=== PATIENT | female | born 1935 | race Caucasian/White ===

== ENCOUNTER 2023-04-23 11:47 | Inpatient (IN) | payer MEDICARE, BC ==
[~2023-04-23] VITALS: Ht 152.4 cm; Wt 59.4 kg
[2023-04-23 12:09] LABS: BASOPHILS # (AUTO) 0.1 K/UL (0.0-0.2); BASOPHILS % (AUTO) 0.4 % (0.0-2.0); EOSINOPHILS # (AUTO) 0.1 K/uL (0.0-0.7); EOSINOPHILS % (AUTO) 0.6 % (0.0-7.0); HEMATOCRIT 36.5 % (31.2-41.9); HEMOGLOBIN 12.2 g/dL (10.9-14.3); LYMPHOCYTES # (AUTO) 1.1 K/uL (0.8-4.8); LYMPHOCYTES % (AUTO) 8.4 % (20.5-51.5); MEAN CORPUSCULAR HEMOGLOBIN 31.2 uug (24.7-32.8); MEAN CORPUSCULAR HGB CONC 34 g/dL (32.3-35.6); MEAN CORPUSCULAR VOLUME 93.1 fL (75.5-95.3); MONOCYTES # (AUTO) 0.8 K/uL (0.1-1.30); MONOCYTES % (AUTO) 5.8 % (0.0-11.0); NEUTROPHILS # (AUTO) 11.1 K/uL (1.8-8.9); NEUTROPHILS % (AUTO) 84.8 % (38.5-71.5); PLATELET COUNT (AUTO) 329 K/uL (179-408); RED BLOOD CELL COUNT(AUTO) 3.92 MIL/uL (3.63-4.92); RED CELL DISTRIBUTION WIDTH 13.4 % (12.3-17.7); WHITE BLOOD COUNT (AUTO) 13.1 K/uL (3.8-11.8)
[2023-04-23 12:12] LABS: DIFFERENTIAL COMMENT 1
[2023-04-23 12:29] LABS: POTASSIUM 4.2 mmol/L (3.5-5.1)
[2023-04-23 12:35] LABS: ALBUMIN 2.4 g/dL (3.4-5.0); BILIRUBIN,TOTAL 0.6 mg/dL (0.2-1.0); TOTAL PROTEIN, SERUM 6.5 g/dL (6.4-8.2)
[2023-04-23 12:47] LABS: CALCIUM 8.9 mg/dL (8.5-10.1)
[2023-04-23 13:02] LABS: *CLARITY,URINE TURBID (CLEAR); *COLOR,URINE RED (YELLOW)
[2023-04-23 13:03] LABS: *BILIRUBIN,URIN NEGATIVE (NEGATIVE); *BLOOD, URINE 3+ (NEGATIVE); *KETONES,URINE NEGATIVE (NEGATIVE); *PROTEIN,URINE 3+ (NEGATIVE); PH,URINE 8.5 (5.0-8.0); UGLUCOSE NEGATIVE (NEGATIVE)
[2023-04-23 13:04] LABS: LEUKOCYTE ESTERASE ,URINE 3+ (NEGATIVE); NITRITE, URINE POSITIVE (NEGATIVE)
[2023-04-23] MEDS ORDERED: IV NS 1000 ML 1,000 ML IV ONE (13:30)
[2023-04-23] MEDS ORDERED: levoFLOXacin 500 MG/D5W 100ML PIGGYBACK IV ONE (13:30)
[2023-04-23] MEDS ORDERED: levoFLOXacin 500 MG/D5W 100 ML ONE (13:31)
[2023-04-23 13:42] LABS: BACTERIA,URINE MODERATE /HPF (NONE SEEN); RBC,URINE TNTC /HPF (0-3); WBC,URINE 80-100 /HPF (0-3)
[2023-04-23] MEDS ORDERED: ONDANSETRON 4 MG/2 ML VIAL IV PRN (16:00)
[2023-04-23] MEDS ORDERED: HYDROCODONE/APAP 5-325MG TABLET PO PRN (16:00)
[2023-04-23] MEDS ORDERED: MAGNESIUM HYDROXIDE 30 ML LIQUID UDC PO PRN (16:00)
[2023-04-23 17:00] VITALS: BP 138/56; TEMP 97; O2SAT 98
[2023-04-23] MEDS: CEFEPIME HCL 1 G in IV DEXTROSE 5% 50 ML IV SCH (17:15)
[2023-04-23] MEDS: IV NS 1000 ML 1,000 ML IV PRN (17:15)
[2023-04-23] MEDS: MEGESTROL ACETATE 20 MG TABLET PO SCH (17:29)
[2023-04-23 20:15] VITALS: BP 128/60; TEMP 98; O2SAT 98
[2023-04-23] MEDS ORDERED: CEFEPIME HCL 1 G in IV DEXTROSE 5% 50 ML IV SCH (21:00)
[2023-04-23] MEDS: MIRTAZAPINE 15 MG TABLET PO SCH (21:35)
[2023-04-24] MEDS: REMEDY ESSENTIAL ZINC PASTE 113 GM TP PRN ×2 (00:33→05:40)
[2023-04-24 04:00] VITALS: BP 106/57; TEMP 98.9; O2SAT 99
[2023-04-24] MEDS: IV NS 1000 ML 1,000 ML IV PRN ×2 (05:08→22:58)
[2023-04-24] MEDS: PANTOPRAZOLE SODIUM 40 MG TABLET.DR PO SCH (06:46)
[2023-04-24 07:06] LABS: BASOPHILS % (AUTO) 0.2 % (0.0-2.0); EOSINOPHILS # (AUTO) 0.1 K/uL (0.0-0.7); EOSINOPHILS % (AUTO) 1.4 % (0.0-7.0); HEMATOCRIT 32.4 % (31.2-41.9); HEMOGLOBIN 11.2 g/dL (10.9-14.3); LYMPHOCYTES # (AUTO) 1.1 K/uL (0.8-4.8); LYMPHOCYTES % (AUTO) 11.8 % (20.5-51.5); MEAN CORPUSCULAR HEMOGLOBIN 32.2 uug (24.7-32.8); MEAN CORPUSCULAR HGB CONC 34 g/dL (32.3-35.6); MEAN CORPUSCULAR VOLUME 93.5 fL (75.5-95.3); MONOCYTES # (AUTO) 0.5 K/uL (0.1-1.30); MONOCYTES % (AUTO) 4.8 % (0.0-11.0); NEUTROPHILS # (AUTO) 7.9 K/uL (1.8-8.9); NEUTROPHILS % (AUTO) 81.8 % (38.5-71.5); PLATELET COUNT (AUTO) 276 K/uL (179-408); RED BLOOD CELL COUNT(AUTO) 3.47 MIL/uL (3.63-4.92); RED CELL DISTRIBUTION WIDTH 13.2 % (12.3-17.7); WHITE BLOOD COUNT (AUTO) 9.6 K/uL (3.8-11.8)
[2023-04-24 07:13] LABS: CALCIUM 8.4 mg/dL (8.5-10.1); CARBON DIOXIDE 17 mmol/L (21-32); CHLORIDE 105 mmol/L (98-107); CREATININE 0.8 mg/dL (0.6-1.3); GLUCOSE 92 mg/dL (74-106); MAGNESIUM 1.8 mg/dL (1.8-2.4); PHOSPHOROUS 2.9 mg/dL (2.5-4.9); POTASSIUM 4.2 mmol/L (3.5-5.1); SODIUM SERUM 133 mmol/L (136-145); UREA NITROGEN, BLOOD 24 mg/dL (7-18)
[2023-04-24 07:28] LABS: DIFFERENTIAL COMMENT 1
[2023-04-24 07:29] LABS: THYROID STIMULATING HORMONE 4.448 mIU/mL (0.358-3.740)
[2023-04-24 08:00] VITALS: BP 115/45; TEMP 98.4; O2SAT 99
[2023-04-24] MEDS: ENSURE ENLIVE (VAN) 240 ML LIQUID PO SCH ×2 (08:00→16:54)
[2023-04-24] MEDS ORDERED: AMLO10TA59 PO (09:31)
[2023-04-24] MEDS ORDERED: ASPI-1169 PO (09:32)
[2023-04-24] MEDS ORDERED: ATOR10TA PO (09:32)
[2023-04-24] MEDS ORDERED: IBUP-1490 PO (09:33)
[2023-04-24] MEDS ORDERED: MEGE40TA5 PO (09:35)
[2023-04-24] MEDS ORDERED: METO100T14 PO (09:35)
[2023-04-24] MEDS ORDERED: VALS160T2 PO (09:37)
[2023-04-24] MEDS ORDERED: POVI480S2 TP (09:38)
[2023-04-24] MEDS: MEGESTROL ACETATE 20 MG TABLET PO SCH ×2 (10:00→16:54)
[2023-04-24] MEDS: SHARK LIVER OIL/PETROLAT OINT 60 GM TUBE RC SCH ×2 (10:01→16:55)
[2023-04-24 11:30] VITALS: BP 124/57; TEMP 98.3; O2SAT 99
[2023-04-24 16:30] VITALS: BP 137/65; TEMP 98.1; O2SAT 98
[2023-04-24] MEDS: CEFEPIME HCL 1 G in IV DEXTROSE 5% 50 ML IV SCH (16:54)
[2023-04-24 20:21] VITALS: BP 107/60; TEMP 98.5; O2SAT 97
[2023-04-24] MEDS: MIRTAZAPINE 15 MG TABLET PO SCH (21:13)
[2023-04-25 04:35] VITALS: BP 149/74; TEMP 98.4; O2SAT 99
[2023-04-25] MEDS: PANTOPRAZOLE SODIUM 40 MG TABLET.DR PO SCH (07:08)
[2023-04-25] MEDS: MEGESTROL ACETATE 20 MG TABLET PO SCH ×2 (08:31→17:06)
[2023-04-25] MEDS: SHARK LIVER OIL/PETROLAT OINT 60 GM TUBE RC SCH ×2 (08:32→17:06)
[2023-04-25] MEDS: ENSURE ENLIVE (VAN) 240 ML LIQUID PO SCH ×3 (08:32→17:07)
[2023-04-25 09:38] VITALS: BP 135/65; TEMP 97.8; O2SAT 98
[2023-04-25 11:55] VITALS: BP 142/67; TEMP 97.7; O2SAT 99
[2023-04-25] MEDS: AMLODIPINE 10 MG TABLET PO SCH (12:23)
[2023-04-25] MEDS: IV NS 1000 ML 1,000 ML IV PRN (12:29)
[2023-04-25 16:46] VITALS: BP 104/54; TEMP 98.4; O2SAT 99
[2023-04-25] MEDS: CEFEPIME HCL 1 G in IV DEXTROSE 5% 50 ML IV SCH (17:06)
[2023-04-25 20:26] VITALS: BP 117/59; TEMP 98.4; O2SAT 98
[2023-04-25] MEDS: MIRTAZAPINE 15 MG TABLET PO SCH (21:46)
[2023-04-25] MEDS: METOPROLOL TARTRATE 50 MG TABLET PO SCH (21:46)
[2023-04-25] MEDS: ATORVASTATIN 10 MG TABLET PO SCH (21:46)
[2023-04-26] MEDS: IV NS 1000 ML 1,000 ML IV PRN ×2 (02:40→16:14)
[2023-04-26 04:26] VITALS: BP 143/62; TEMP 98.3; O2SAT 96
[2023-04-26] MEDS: PANTOPRAZOLE SODIUM 40 MG TABLET.DR PO SCH (06:08)
[2023-04-26 08:00] VITALS: BP 135/65; TEMP 98.5; O2SAT 98
[2023-04-26] MEDS: VALSARTAN 160 MG TABLET PO SCH (08:33)
[2023-04-26] MEDS: METOPROLOL TARTRATE 50 MG TABLET PO SCH ×2 (08:34→20:30)
[2023-04-26] MEDS: MEGESTROL ACETATE 20 MG TABLET PO SCH ×2 (08:34→16:08)
[2023-04-26] MEDS: AMLODIPINE 10 MG TABLET PO SCH (08:34)
[2023-04-26] MEDS: SHARK LIVER OIL/PETROLAT OINT 60 GM TUBE RC SCH ×2 (08:34→16:10)
[2023-04-26] MEDS: ENSURE ENLIVE (VAN) 240 ML LIQUID PO SCH ×3 (08:35→16:10)
[2023-04-26 08:36] LABS: BASOPHILS % (AUTO) 0.4 % (0.0-2.0); EOSINOPHILS # (AUTO) 0.1 K/uL (0.0-0.7); HEMATOCRIT 31.6 % (31.2-41.9); LYMPHOCYTES # (AUTO) 0.8 K/uL (0.8-4.8); MEAN CORPUSCULAR HEMOGLOBIN 32.5 uug (24.7-32.8); MEAN CORPUSCULAR HGB CONC 35 g/dL (32.3-35.6); MEAN CORPUSCULAR VOLUME 93.3 fL (75.5-95.3); MONOCYTES # (AUTO) 0.5 K/uL (0.1-1.30); MONOCYTES % (AUTO) 4.6 % (0.0-11.0); NEUTROPHILS # (AUTO) 8.5 K/uL (1.8-8.9); PLATELET COUNT (AUTO) 263 K/uL (179-408); RED BLOOD CELL COUNT(AUTO) 3.38 MIL/uL (3.63-4.92); RED CELL DISTRIBUTION WIDTH 13.3 % (12.3-17.7); WHITE BLOOD COUNT (AUTO) 9.9 K/uL (3.8-11.8)
[2023-04-26 09:00] LABS: CARBON DIOXIDE 18 mmol/L (21-32); CHLORIDE 108 mmol/L (98-107); CREATININE 0.8 mg/dL (0.6-1.3); GLUCOSE 95 mg/dL (74-106); POTASSIUM 4.2 mmol/L (3.5-5.1); SODIUM SERUM 136 mmol/L (136-145); UREA NITROGEN, BLOOD 17 mg/dL (7-18)
[2023-04-26 09:05] LABS: CALCIUM 8.5 mg/dL (8.5-10.1)
[2023-04-26 09:14] LABS: DIFFERENTIAL COMMENT 1
[2023-04-26 09:39] LABS: MAGNESIUM 1.6 mg/dL (1.8-2.4); PHOSPHOROUS 2.7 mg/dL (2.5-4.9); URIC ACID 2.1 mg/dL (2.6-6.0)
[2023-04-26 10:29] LABS: THYROID STIMULATING HORMONE 3.84 mIU/mL (0.358-3.740)
[2023-04-26 11:45] VITALS: BP 114/49; TEMP 97.9; O2SAT 98
[2023-04-26] MEDS: ACETAMINOPHEN 325 MG TABLET PO PRN ×2 (12:46→20:31)
[2023-04-26 15:47] VITALS: BP 123/58; TEMP 97.9; O2SAT 97
[2023-04-26] MEDS: CEFEPIME HCL 1 G in IV DEXTROSE 5% 50 ML IV SCH (16:08)
[2023-04-26] MEDS: ATORVASTATIN 10 MG TABLET PO SCH (20:29)
[2023-04-26] MEDS: MIRTAZAPINE 15 MG TABLET PO SCH (20:30)
[2023-04-26 21:35] VITALS: BP 116/53; TEMP 98.2; O2SAT 97
[2023-04-27 05:41] VITALS: BP 130/61; TEMP 97.4; O2SAT 97
[2023-04-27] MEDS: PANTOPRAZOLE SODIUM 40 MG TABLET.DR PO SCH (06:06)
[2023-04-27] MEDS: IV NS 1000 ML 1,000 ML IV PRN ×2 (06:21→21:55)
[2023-04-27 07:18] LABS: BASOPHILS % (AUTO) 0.2 % (0.0-2.0); EOSINOPHILS # (AUTO) 0.1 K/uL (0.0-0.7); EOSINOPHILS % (AUTO) 1.3 % (0.0-7.0); HEMATOCRIT 30.4 % (31.2-41.9); HEMOGLOBIN 10.3 g/dL (10.9-14.3); LYMPHOCYTES # (AUTO) 0.7 K/uL (0.8-4.8); LYMPHOCYTES % (AUTO) 8.2 % (20.5-51.5); MEAN CORPUSCULAR HEMOGLOBIN 31.5 uug (24.7-32.8); MEAN CORPUSCULAR HGB CONC 34 g/dL (32.3-35.6); MEAN CORPUSCULAR VOLUME 92.7 fL (75.5-95.3); MONOCYTES # (AUTO) 0.5 K/uL (0.1-1.30); MONOCYTES % (AUTO) 5.8 % (0.0-11.0); NEUTROPHILS # (AUTO) 7.6 K/uL (1.8-8.9); NEUTROPHILS % (AUTO) 84.5 % (38.5-71.5); PLATELET COUNT (AUTO) 248 K/uL (179-408); RED BLOOD CELL COUNT(AUTO) 3.28 MIL/uL (3.63-4.92); RED CELL DISTRIBUTION WIDTH 13.3 % (12.3-17.7)
[2023-04-27 07:24] LABS: DIFFERENTIAL COMMENT 1
[2023-04-27 07:35] LABS: MAGNESIUM 1.7 mg/dL (1.8-2.4); PHOSPHOROUS 2.1 mg/dL (2.5-4.9)
[2023-04-27 07:47] LABS: CALCIUM 8.1 mg/dL (8.5-10.1); CREATININE 0.7 mg/dL (0.6-1.3); POTASSIUM 3.9 mmol/L (3.5-5.1)
[2023-04-27 08:00] VITALS: BP 140/59; TEMP 97.3; O2SAT 98
[2023-04-27] MEDS ORDERED: NEUTRA PHOS PACKET PO ONE (09:45)
[2023-04-27] MEDS: METOPROLOL TARTRATE 50 MG TABLET PO SCH ×2 (09:50→21:47)
[2023-04-27] MEDS: MEGESTROL ACETATE 20 MG TABLET PO SCH ×2 (09:50→16:53)
[2023-04-27] MEDS: VALSARTAN 160 MG TABLET PO SCH (09:50)
[2023-04-27] MEDS: AMLODIPINE 10 MG TABLET PO SCH (09:50)
[2023-04-27] MEDS: ENSURE ENLIVE (VAN) 240 ML LIQUID PO SCH ×3 (09:51→16:53)
[2023-04-27] MEDS: SHARK LIVER OIL/PETROLAT OINT 60 GM TUBE RC SCH ×2 (09:51→16:54)
[2023-04-27] MEDS: MAGNESIUM SULFATE/D5W 100 ML IV SCH ×2 (10:05→11:15)
[2023-04-27] MEDS: ACETAMINOPHEN 325 MG TABLET PO PRN (10:55)
[2023-04-27 11:47] VITALS: BP 134/55; TEMP 98.8; O2SAT 98
[2023-04-27] MEDS: CEFEPIME HCL 1 G in IV DEXTROSE 5% 50 ML IV SCH (16:53)
[2023-04-27 17:11] VITALS: BP 102/48; TEMP 98.2; O2SAT 96
[2023-04-27 20:20] VITALS: BP 112/59; TEMP 98.2; O2SAT 95
[2023-04-27] MEDS: MIRTAZAPINE 15 MG TABLET PO SCH (21:42)
[2023-04-28 04:30] VITALS: BP 139/68; TEMP 98.3; O2SAT 96
[2023-04-28 06:26] LABS: BASOPHILS % (AUTO) 0.4 % (0.0-2.0); EOSINOPHILS % (AUTO) 0.1 % (0.0-7.0); HEMOGLOBIN 11.3 g/dL (10.9-14.3); LYMPHOCYTES # (AUTO) 0.5 K/uL (0.8-4.8); LYMPHOCYTES % (AUTO) 4.5 % (20.5-51.5); MEAN CORPUSCULAR HEMOGLOBIN 31.6 uug (24.7-32.8); MEAN CORPUSCULAR HGB CONC 34 g/dL (32.3-35.6); MEAN CORPUSCULAR VOLUME 92.5 fL (75.5-95.3); MONOCYTES # (AUTO) 0.7 K/uL (0.1-1.30); MONOCYTES % (AUTO) 5.8 % (0.0-11.0); NEUTROPHILS % (AUTO) 89.2 % (38.5-71.5); PLATELET COUNT (AUTO) 290 K/uL (179-408); RED BLOOD CELL COUNT(AUTO) 3.57 MIL/uL (3.63-4.92); RED CELL DISTRIBUTION WIDTH 13.5 % (12.3-17.7); WHITE BLOOD COUNT (AUTO) 11.2 K/uL (3.8-11.8)
[2023-04-28 06:40] LABS: CALCIUM 8.4 mg/dL (8.5-10.1); CARBON DIOXIDE 18 mmol/L (21-32); CHLORIDE 105 mmol/L (98-107); CREATININE 0.8 mg/dL (0.6-1.3); GLUCOSE 99 mg/dL (74-106); POTASSIUM 4.3 mmol/L (3.5-5.1); SODIUM SERUM 133 mmol/L (136-145); UREA NITROGEN, BLOOD 20 mg/dL (7-18)
[2023-04-28] MEDS: PANTOPRAZOLE SODIUM 40 MG TABLET.DR PO SCH (06:49)
[2023-04-28 07:33] LABS: DIFFERENTIAL COMMENT 1
[2023-04-28] MEDS: MEGESTROL ACETATE 20 MG TABLET PO SCH ×2 (09:03→17:31)
[2023-04-28] MEDS: VALSARTAN 160 MG TABLET PO SCH (09:11)
[2023-04-28] MEDS: ENSURE ENLIVE (VAN) 240 ML LIQUID PO SCH ×3 (09:11→17:31)
[2023-04-28] MEDS: AMLODIPINE 10 MG TABLET PO SCH (09:12)
[2023-04-28] MEDS: METOPROLOL TARTRATE 50 MG TABLET PO SCH ×2 (09:12→21:00)
[2023-04-28 09:13] VITALS: BP 96/49; TEMP 97.7; O2SAT 98
[2023-04-28] MEDS: SHARK LIVER OIL/PETROLAT OINT 60 GM TUBE RC SCH ×2 (09:13→17:31)
[2023-04-28 11:00] LABS: *CREATININE,URINE 26.8 mg/dL (30-125); *URINE TOTAL PROTEIN RANDOM 180.5 mg/dL (<150/24HR)
[2023-04-28 12:00] VITALS: BP 116/48; TEMP 98.3; O2SAT 98
[2023-04-28 12:30] VITALS: BP 120/56; TEMP 97.4; O2SAT 96
[2023-04-28 15:43] VITALS: BP 106/52; TEMP 98.6; O2SAT 96
[2023-04-28] MEDS: CEFEPIME HCL 1 G in IV DEXTROSE 5% 50 ML IV SCH (17:31)
[2023-04-28 20:00] VITALS: BP 115/59; TEMP 99.7; O2SAT 96
[2023-04-28] MEDS: MIRTAZAPINE 15 MG TABLET PO SCH (21:12)
[2023-04-29 04:00] VITALS: BP 125/54; TEMP 98.4; O2SAT 97
[2023-04-29] MEDS: PANTOPRAZOLE SODIUM 40 MG TABLET.DR PO SCH (06:15)
[2023-04-29 07:10] LABS: BASOPHILS % (AUTO) 0.5 % (0.0-2.0); EOSINOPHILS # (AUTO) 0.1 K/uL (0.0-0.7); EOSINOPHILS % (AUTO) 0.9 % (0.0-7.0); HEMATOCRIT 30.4 % (31.2-41.9); HEMOGLOBIN 10.6 g/dL (10.9-14.3); LYMPHOCYTES # (AUTO) 1.2 K/uL (0.8-4.8); LYMPHOCYTES % (AUTO) 12.8 % (20.5-51.5); MEAN CORPUSCULAR HEMOGLOBIN 32.3 uug (24.7-32.8); MEAN CORPUSCULAR HGB CONC 35 g/dL (32.3-35.6); MEAN CORPUSCULAR VOLUME 92.5 fL (75.5-95.3); MONOCYTES # (AUTO) 0.7 K/uL (0.1-1.30); MONOCYTES % (AUTO) 7.8 % (0.0-11.0); NEUTROPHILS # (AUTO) 7.3 K/uL (1.8-8.9); PLATELET COUNT (AUTO) 319 K/uL (179-408); RED BLOOD CELL COUNT(AUTO) 3.29 MIL/uL (3.63-4.92); RED CELL DISTRIBUTION WIDTH 13.5 % (12.3-17.7); WHITE BLOOD COUNT (AUTO) 9.3 K/uL (3.8-11.8)
[2023-04-29 07:22] LABS: DIFFERENTIAL COMMENT 1
[2023-04-29 07:25] LABS: CALCIUM 8.7 mg/dL (8.5-10.1); CREATININE 0.7 mg/dL (0.6-1.3)
[2023-04-29 09:49] VITALS: BP 123/53; TEMP 97.4; O2SAT 98
[2023-04-29] MEDS: MEGESTROL ACETATE 20 MG TABLET PO SCH ×2 (09:53→17:36)
[2023-04-29] MEDS: METOPROLOL TARTRATE 50 MG TABLET PO SCH ×2 (09:53→20:49)
[2023-04-29] MEDS: ENSURE ENLIVE (VAN) 240 ML LIQUID PO SCH ×3 (09:53→17:36)
[2023-04-29] MEDS: VALSARTAN 160 MG TABLET PO SCH (09:53)
[2023-04-29] MEDS: AMLODIPINE 10 MG TABLET PO SCH (09:53)
[2023-04-29] MEDS: SHARK LIVER OIL/PETROLAT OINT 60 GM TUBE RC SCH ×2 (09:54→17:36)
[2023-04-29 11:50] VITALS: BP 111/49; TEMP 97.7; O2SAT 98
[2023-04-29 17:18] VITALS: BP 104/54; TEMP 98; O2SAT 98
[2023-04-29] MEDS: CEFEPIME HCL 1 G in IV DEXTROSE 5% 50 ML IV SCH (17:37)
[2023-04-29 20:00] VITALS: BP 123/52; TEMP 98.6; O2SAT 96
[2023-04-29] MEDS: MIRTAZAPINE 15 MG TABLET PO SCH (20:48)
[2023-04-30 04:00] VITALS: BP 125/56; TEMP 98.2; O2SAT 97
[2023-04-30] MEDS: PANTOPRAZOLE SODIUM 40 MG TABLET.DR PO SCH (06:11)
[2023-04-30] MEDS: METOPROLOL TARTRATE 50 MG TABLET PO SCH ×2 (08:16→21:02)
[2023-04-30] MEDS: MEGESTROL ACETATE 20 MG TABLET PO SCH ×2 (08:16→17:24)
[2023-04-30] MEDS: VALSARTAN 160 MG TABLET PO SCH (08:16)
[2023-04-30 08:17] VITALS: BP 117/55; TEMP 98.4; O2SAT 96
[2023-04-30] MEDS: ENSURE ENLIVE (VAN) 240 ML LIQUID PO SCH ×3 (08:17→17:27)
[2023-04-30] MEDS: SHARK LIVER OIL/PETROLAT OINT 60 GM TUBE RC SCH ×2 (08:17→17:28)
[2023-04-30] MEDS: AMLODIPINE 10 MG TABLET PO SCH (08:17)
[2023-04-30 11:33] VITALS: BP 103/46; TEMP 98.5; O2SAT 96
[2023-04-30 15:36] VITALS: BP 120/55; TEMP 98.6; O2SAT 97
[2023-04-30] MEDS: CEFEPIME HCL 1 G in IV DEXTROSE 5% 50 ML IV SCH (17:25)
[2023-04-30 20:00] VITALS: BP 123/52; TEMP 97.9; O2SAT 96
[2023-04-30] MEDS: MIRTAZAPINE 15 MG TABLET PO SCH (21:01)
[2023-05-01 04:00] VITALS: BP 101/55; TEMP 97.7; O2SAT 95
[2023-05-01 06:13] LABS: BASOPHILS # (AUTO) 0.3 K/UL (0.0-0.2); BASOPHILS % (AUTO) 3.5 % (0.0-2.0); EOSINOPHILS # (AUTO) 0.2 K/uL (0.0-0.7); EOSINOPHILS % (AUTO) 1.9 % (0.0-7.0); HEMATOCRIT 30.3 % (31.2-41.9); HEMOGLOBIN 10.6 g/dL (10.9-14.3); LYMPHOCYTES # (AUTO) 0.8 K/uL (0.8-4.8); LYMPHOCYTES % (AUTO) 9.9 % (20.5-51.5); MEAN CORPUSCULAR HEMOGLOBIN 32.3 uug (24.7-32.8); MEAN CORPUSCULAR HGB CONC 35 g/dL (32.3-35.6); MEAN CORPUSCULAR VOLUME 91.9 fL (75.5-95.3); MONOCYTES # (AUTO) 0.7 K/uL (0.1-1.30); MONOCYTES % (AUTO) 8.1 % (0.0-11.0); NEUTROPHILS # (AUTO) 6.4 K/uL (1.8-8.9); NEUTROPHILS % (AUTO) 76.6 % (38.5-71.5); PLATELET COUNT (AUTO) 402 K/uL (179-408); RED BLOOD CELL COUNT(AUTO) 3.29 MIL/uL (3.63-4.92); RED CELL DISTRIBUTION WIDTH 13.6 % (12.3-17.7); WHITE BLOOD COUNT (AUTO) 8.3 K/uL (3.8-11.8)
[2023-05-01 06:19] LABS: DIFFERENTIAL COMMENT 1
[2023-05-01 06:25] LABS: CALCIUM 8.8 mg/dL (8.5-10.1); CARBON DIOXIDE 23 mmol/L (21-32); CHLORIDE 102 mmol/L (98-107); CREATININE 0.7 mg/dL (0.6-1.3); GLUCOSE 96 mg/dL (74-106); MAGNESIUM 1.9 mg/dL (1.8-2.4); PHOSPHOROUS 3.4 mg/dL (2.5-4.9); POTASSIUM 4.2 mmol/L (3.5-5.1); SODIUM SERUM 132 mmol/L (136-145); UREA NITROGEN, BLOOD 21 mg/dL (7-18)
[2023-05-01] MEDS: PANTOPRAZOLE SODIUM 40 MG TABLET.DR PO SCH (06:33)
[2023-05-01] MEDS: METOPROLOL TARTRATE 50 MG TABLET PO SCH (08:13)
[2023-05-01] MEDS: VALSARTAN 160 MG TABLET PO SCH (08:13)
[2023-05-01] MEDS: MEGESTROL ACETATE 20 MG TABLET PO SCH ×2 (08:13→16:10)
[2023-05-01] MEDS: AMLODIPINE 10 MG TABLET PO SCH (08:13)
[2023-05-01] MEDS: SHARK LIVER OIL/PETROLAT OINT 60 GM TUBE RC SCH ×2 (08:14→16:11)
[2023-05-01] MEDS: ENSURE ENLIVE (VAN) 240 ML LIQUID PO SCH ×3 (08:14→16:11)
[2023-05-01 11:35] VITALS: BP 134/53; TEMP 98.8; O2SAT 97
[2023-05-01 15:37] VITALS: BP 123/57; TEMP 98.3; O2SAT 98
[2023-05-01] MEDS: CEFEPIME HCL 1 G in IV DEXTROSE 5% 50 ML IV SCH (16:10)
== END 2023-05-01 18:59 | DRG 689 ==
LOC: ER 11:47 → MEDSURG3 16:15
PROVIDERS: ADMIT Nurse Practitioner Acute Care; ATTEND Nurse Practitioner Acute Care
DX: N39.0 Urinary tract infection, site not specified (principal); E43 Unspecified severe protein-calorie malnutrition; G93.41 Metabolic encephalopathy; E87.1 Hypo-osmolality and hyponatremia; I50.32 Chronic diastolic (congestive) heart failure; E87.20 Acidosis, unspecified; N17.9 Acute kidney failure, unspecified; B96.89 Other specified bacterial agents as the cause of diseases classified elsewhere; R31.0 Gross hematuria; R62.7 Adult failure to thrive; Z68.25 Body mass index [BMI] 25.0-25.9, adult; E86.0 Dehydration; E86.1 Hypovolemia; I25.2 Old myocardial infarction; R33.9 Retention of urine, unspecified; Z53.8 Procedure and treatment not carried out for other reasons; N20.0 Calculus of kidney; E03.8 Other specified hypothyroidism; I11.0 Hypertensive heart disease with heart failure; F03.90 Unspecified dementia, unspecified severity, without behavioral disturbance, psychotic disturbance, mood disturbance, and anxiety; E78.5 Hyperlipidemia, unspecified; J44.9 Chronic obstructive pulmonary disease, unspecified
CPT/HCPCS: 36415; 71045; 83605; 83735; 84100; 84300; 84443; 84550; 85025; 85610; 87040; A4606; A4663; A9150; C1758; G0378; J0692; J1956; J3475; J7040

== ENCOUNTER 2023-05-01 19:05 | Inpatient (IN) | payer MEDICARE, BC ==
[~2023-05-01] VITALS: Ht 152.4 cm; Wt 57.2 kg
[~2023-05-01 19:05] MED LIST: AMLO10TA59 PO; ASPI-1169 PO; ATOR10TA PO; IBUP-1490 PO; MEGE40TA5 PO; METO100T14 PO; POVI480S2 TP; VALS160T2 PO
[2023-05-01] MEDS ORDERED: IBUPROFEN 600 MG TABLET PO PRN (21:15)
[2023-05-01 23:26] LABS: *BILIRUBIN,URIN NEGATIVE (NEGATIVE); *BLOOD, URINE 2+ (NEGATIVE); *COLOR,URINE YELLOW (YELLOW); *KETONES,URINE NEGATIVE (NEGATIVE); *PROTEIN,URINE 2+ (NEGATIVE); *UROBILINOGEN,URINE 0.2 E.U./dl (NORMAL); LEUKOCYTE ESTERASE ,URINE 3+ (NEGATIVE); NITRITE, URINE NEGATIVE (NEGATIVE); PH,URINE 6.5 (5.0-8.0); UGLUCOSE NEGATIVE (NEGATIVE)
[2023-05-01] MEDS ORDERED: REMEDY ESSENTIAL ZINC PASTE 113 GM TOP PRN (23:30)
[2023-05-01 23:58] LABS: *CLARITY,URINE CLOUDY (CLEAR)
[2023-05-02 00:02] LABS: BACTERIA,URINE MANY /HPF (NONE SEEN); RBC,URINE TNTC /HPF (0-3); SQUAMOUS EPITHELIAL CELL,UR FEW /HPF (NONE SEEN); WBC,URINE TNTC /HPF (0-3)
[2023-05-02 04:00] VITALS: BP 109/58; TEMP 97.8; O2SAT 95
[2023-05-02] MEDS: VALSARTAN 160 MG TABLET PO SCH (08:42)
[2023-05-02] MEDS: ASPIRIN 81 MG TAB.CHEW PO SCH (08:43)
[2023-05-02] MEDS: METOPROLOL TARTRATE 50 MG TABLET PO SCH ×2 (08:43→20:52)
[2023-05-02] MEDS: MEGESTROL ACETATE 20 MG TABLET PO SCH ×2 (08:43→16:50)
[2023-05-02] MEDS: REMEDY ESSENTIAL ZINC PASTE 113 GM TOP SCH ×2 (08:45→21:15)
[2023-05-02] MEDS: AMLODIPINE 10 MG TABLET PO SCH (08:45)
[2023-05-02 16:06] VITALS: BP 98/48; TEMP 97.8; O2SAT 98
[2023-05-02 20:00] VITALS: BP 106/49; TEMP 98.3; O2SAT 98
[2023-05-02] MEDS: ATORVASTATIN 10 MG TABLET PO SCH (20:52)
[2023-05-03 04:00] VITALS: BP 99/48; TEMP 97.3; O2SAT 96
[2023-05-03 08:01] VITALS: TEMP 98.1
[2023-05-03] MEDS: AMLODIPINE 10 MG TABLET PO SCH (09:05)
[2023-05-03] MEDS: ASPIRIN 81 MG TAB.CHEW PO SCH (09:05)
[2023-05-03] MEDS: MEGESTROL ACETATE 20 MG TABLET PO SCH ×2 (09:05→16:42)
[2023-05-03] MEDS: REMEDY ESSENTIAL ZINC PASTE 113 GM TOP SCH ×2 (09:06→21:28)
[2023-05-03] MEDS: METOPROLOL TARTRATE 50 MG TABLET PO SCH ×2 (09:06→21:28)
[2023-05-03] MEDS: VALSARTAN 160 MG TABLET PO SCH (09:06)
[2023-05-03 20:30] VITALS: BP 131/49; TEMP 98.5; O2SAT 98
[2023-05-03] MEDS: ATORVASTATIN 10 MG TABLET PO SCH (21:27)
[2023-05-04 04:00] VITALS: BP 116/58; TEMP 98.6; O2SAT 96
[2023-05-04 06:34] LABS: BASOPHILS # (AUTO) 0.1 K/UL (0.0-0.2); BASOPHILS % (AUTO) 0.9 % (0.0-2.0); EOSINOPHILS # (AUTO) 0.1 K/uL (0.0-0.7); EOSINOPHILS % (AUTO) 1.4 % (0.0-7.0); HEMATOCRIT 29.8 % (31.2-41.9); HEMOGLOBIN 10.2 g/dL (10.9-14.3); LYMPHOCYTES # (AUTO) 0.9 K/uL (0.8-4.8); LYMPHOCYTES % (AUTO) 15.2 % (20.5-51.5); MEAN CORPUSCULAR HGB CONC 34 g/dL (32.3-35.6); MEAN CORPUSCULAR VOLUME 93.4 fL (75.5-95.3); MONOCYTES # (AUTO) 0.5 K/uL (0.1-1.30); MONOCYTES % (AUTO) 9.3 % (0.0-11.0); NEUTROPHILS # (AUTO) 4.2 K/uL (1.8-8.9); NEUTROPHILS % (AUTO) 73.2 % (38.5-71.5); PLATELET COUNT (AUTO) 463 K/uL (179-408); RED BLOOD CELL COUNT(AUTO) 3.19 MIL/uL (3.63-4.92); RED CELL DISTRIBUTION WIDTH 13.6 % (12.3-17.7); WHITE BLOOD COUNT (AUTO) 5.8 K/uL (3.8-11.8)
[2023-05-04 06:52] LABS: DIFFERENTIAL COMMENT 1
[2023-05-04 07:05] LABS: CALCIUM 8.9 mg/dL (8.5-10.1); CARBON DIOXIDE 22 mmol/L (21-32); CHLORIDE 103 mmol/L (98-107); CREATININE 0.8 mg/dL (0.6-1.3); GLUCOSE 81 mg/dL (74-106); MAGNESIUM 2.3 mg/dL (1.8-2.4); PHOSPHOROUS 3.3 mg/dL (2.5-4.9); POTASSIUM 4.7 mmol/L (3.5-5.1); SODIUM SERUM 135 mmol/L (136-145); UREA NITROGEN, BLOOD 29 mg/dL (7-18)
[2023-05-04 08:00] VITALS: BP 105/55; TEMP 99.3; O2SAT 98
[2023-05-04] MEDS: VALSARTAN 160 MG TABLET PO SCH (08:21)
[2023-05-04] MEDS: ASPIRIN 81 MG TAB.CHEW PO SCH (08:21)
[2023-05-04] MEDS: AMLODIPINE 10 MG TABLET PO SCH (08:21)
[2023-05-04] MEDS: METOPROLOL TARTRATE 50 MG TABLET PO SCH ×2 (08:21→21:00)
[2023-05-04] MEDS: MEGESTROL ACETATE 20 MG TABLET PO SCH ×2 (08:21→16:29)
[2023-05-04] MEDS: TOLTERODINE LA 2 MG CAP.SR.24H PO SCH (08:25)
[2023-05-04] MEDS: REMEDY ESSENTIAL ZINC PASTE 113 GM TOP SCH ×2 (08:43→21:55)
[2023-05-04 11:29] VITALS: BP 112/92; TEMP 98.2; O2SAT 99
[2023-05-04 15:23] VITALS: BP 103/53; TEMP 98.3; O2SAT 97
[2023-05-04] MEDS: ATORVASTATIN 10 MG TABLET PO SCH (21:45)
[2023-05-05] MEDS: MEGESTROL ACETATE 20 MG TABLET PO SCH ×2 (08:37→16:17)
[2023-05-05] MEDS: TOLTERODINE LA 2 MG CAP.SR.24H PO SCH (08:37)
[2023-05-05] MEDS: ASPIRIN 81 MG TAB.CHEW PO SCH (08:37)
[2023-05-05] MEDS: AMLODIPINE 10 MG TABLET PO SCH (08:42)
[2023-05-05] MEDS: METOPROLOL TARTRATE 50 MG TABLET PO SCH ×2 (08:42→21:00)
[2023-05-05] MEDS: VALSARTAN 160 MG TABLET PO SCH (08:42)
[2023-05-05 09:13] VITALS: BP 122/59; TEMP 97.2; O2SAT 98
[2023-05-05] MEDS: REMEDY ESSENTIAL ZINC PASTE 113 GM TOP SCH ×2 (09:16→21:27)
[2023-05-05 15:41] VITALS: BP 99/55; TEMP 97.3; O2SAT 97
[2023-05-05] MEDS: ENSURE WITH FIBER 237 ML LIQUID (CHOCOLATE) PO SCH (16:17)
[2023-05-05] MEDS: CLOTRIMAZOLE 1% CREAM 30 GM TUBE TOP SCH (16:56)
[2023-05-05 20:25] VITALS: BP 99/54; TEMP 98.8; O2SAT 97
[2023-05-06 04:22] VITALS: BP 105/56; TEMP 99.1; O2SAT 98
[2023-05-06 07:02] LABS: BASOPHILS # (AUTO) 0.1 K/UL (0.0-0.2); BASOPHILS % (AUTO) 0.8 % (0.0-2.0); EOSINOPHILS # (AUTO) 0.1 K/uL (0.0-0.7); HEMATOCRIT 28.3 % (31.2-41.9); HEMOGLOBIN 9.8 g/dL (10.9-14.3); LYMPHOCYTES # (AUTO) 0.8 K/uL (0.8-4.8); LYMPHOCYTES % (AUTO) 12.7 % (20.5-51.5); MEAN CORPUSCULAR HEMOGLOBIN 31.7 uug (24.7-32.8); MEAN CORPUSCULAR HGB CONC 35 g/dL (32.3-35.6); MEAN CORPUSCULAR VOLUME 91.7 fL (75.5-95.3); MONOCYTES # (AUTO) 0.6 K/uL (0.1-1.30); MONOCYTES % (AUTO) 9.4 % (0.0-11.0); NEUTROPHILS % (AUTO) 76.1 % (38.5-71.5); PLATELET COUNT (AUTO) 460 K/uL (179-408); RED BLOOD CELL COUNT(AUTO) 3.09 MIL/uL (3.63-4.92); RED CELL DISTRIBUTION WIDTH 13.5 % (12.3-17.7); WHITE BLOOD COUNT (AUTO) 6.6 K/uL (3.8-11.8)
[2023-05-06 07:24] LABS: DIFFERENTIAL COMMENT 1
[2023-05-06 07:34] LABS: CALCIUM 8.7 mg/dL (8.5-10.1); CARBON DIOXIDE 24 mmol/L (21-32); CHLORIDE 105 mmol/L (98-107); CREATININE 0.9 mg/dL (0.6-1.3); GLUCOSE 103 mg/dL (74-106); MAGNESIUM 2.3 mg/dL (1.8-2.4); POTASSIUM 4.1 mmol/L (3.5-5.1); SODIUM SERUM 139 mmol/L (136-145); UREA NITROGEN, BLOOD 38 mg/dL (7-18)
[2023-05-06 08:06] VITALS: BP 104/53; TEMP 97.6; O2SAT 98
[2023-05-06] MEDS: MEGESTROL ACETATE 20 MG TABLET PO SCH ×2 (08:41→16:12)
[2023-05-06] MEDS: ASPIRIN 81 MG TAB.CHEW PO SCH (08:41)
[2023-05-06] MEDS: METOPROLOL TARTRATE 50 MG TABLET PO SCH ×2 (08:41→20:54)
[2023-05-06] MEDS: CLOTRIMAZOLE 1% CREAM 30 GM TUBE TOP SCH ×2 (08:41→17:06)
[2023-05-06] MEDS: VALSARTAN 160 MG TABLET PO SCH (08:41)
[2023-05-06] MEDS: AMLODIPINE 5 MG TABLET PO SCH (08:42)
[2023-05-06] MEDS: ENSURE WITH FIBER 237 ML LIQUID (CHOCOLATE) PO SCH ×2 (09:00→16:12)
[2023-05-06] MEDS ORDERED: AMLODIPINE 10 MG TABLET PO SCH (09:00)
[2023-05-06] MEDS: REMEDY ESSENTIAL ZINC PASTE 113 GM TOP SCH ×2 (09:00→21:37)
[2023-05-06 16:00] VITALS: BP 117/48; TEMP 98.1; O2SAT 98
[2023-05-06 20:57] VITALS: BP 100/54; TEMP 97; O2SAT 97
[2023-05-07 08:00] VITALS: BP 116/65; TEMP 98; O2SAT 98
[2023-05-07] MEDS: MEGESTROL ACETATE 20 MG TABLET PO SCH ×2 (08:41→16:32)
[2023-05-07] MEDS: ASPIRIN 81 MG TAB.CHEW PO SCH (08:41)
[2023-05-07] MEDS: ENSURE WITH FIBER 237 ML LIQUID (CHOCOLATE) PO SCH ×2 (08:44→16:31)
[2023-05-07] MEDS: REMEDY ESSENTIAL ZINC PASTE 113 GM TOP SCH ×2 (08:47→21:14)
[2023-05-07] MEDS: CLOTRIMAZOLE 1% CREAM 30 GM TUBE TOP SCH ×2 (08:48→16:33)
[2023-05-07] MEDS: AMLODIPINE 5 MG TABLET PO SCH (08:51)
[2023-05-07] MEDS: METOPROLOL TARTRATE 50 MG TABLET PO SCH ×2 (08:51→20:59)
[2023-05-07 09:37] LABS: *OCCULT BLOOD STOOL POSITIVE (NEGATIVE)
[2023-05-07] MEDS: VALSARTAN 160 MG TABLET PO SCH (10:27)
[2023-05-07 11:12] VITALS: BP 98/53; TEMP 98.3; O2SAT 98
[2023-05-07 15:44] VITALS: BP 94/47; TEMP 98.2; O2SAT 98
[2023-05-07 20:00] VITALS: TEMP 98.5
[2023-05-08 07:28] VITALS: BP 110/54; TEMP 97.5; O2SAT 98
[2023-05-08] MEDS: AMLODIPINE 5 MG TABLET PO SCH (09:00)
[2023-05-08] MEDS: METOPROLOL TARTRATE 50 MG TABLET PO SCH ×2 (09:00→20:19)
[2023-05-08] MEDS: VALSARTAN 160 MG TABLET PO SCH (09:00)
[2023-05-08] MEDS: ASPIRIN 81 MG TAB.CHEW PO SCH (09:49)
[2023-05-08] MEDS: MODAFINIL 100 MG TABLET PO SCH (09:49)
[2023-05-08] MEDS: MEGESTROL ACETATE 20 MG TABLET PO SCH ×2 (09:49→16:50)
[2023-05-08] MEDS: ENSURE WITH FIBER 237 ML LIQUID (CHOCOLATE) PO SCH ×2 (09:52→16:50)
[2023-05-08] MEDS: REMEDY ESSENTIAL ZINC PASTE 113 GM TOP SCH ×2 (09:53→20:18)
[2023-05-08] MEDS: CLOTRIMAZOLE 1% CREAM 30 GM TUBE TOP SCH ×2 (09:53→16:52)
[2023-05-08 15:11] VITALS: BP 115/62; TEMP 97.6; O2SAT 96
[2023-05-08 21:25] VITALS: BP 88/50; TEMP 98; O2SAT 99
[2023-05-08 22:00] VITALS: BP 106/52; O2SAT 97
[2023-05-09 04:30] VITALS: BP 113/58; TEMP 97.8; O2SAT 99
[2023-05-09 08:00] VITALS: BP 115/55; TEMP 98.3; O2SAT 97
[2023-05-09] MEDS: ASPIRIN 81 MG TAB.CHEW PO SCH (08:22)
[2023-05-09] MEDS: MODAFINIL 100 MG TABLET PO SCH (08:23)
[2023-05-09] MEDS: MEGESTROL ACETATE 20 MG TABLET PO SCH ×2 (08:23→17:05)
[2023-05-09] MEDS: AMLODIPINE 5 MG TABLET PO SCH (08:24)
[2023-05-09] MEDS: CLOTRIMAZOLE 1% CREAM 30 GM TUBE TOP SCH ×2 (08:24→17:05)
[2023-05-09] MEDS: REMEDY ESSENTIAL ZINC PASTE 113 GM TOP SCH ×2 (08:25→21:47)
[2023-05-09] MEDS: METOPROLOL TARTRATE 50 MG TABLET PO SCH ×2 (08:25→21:47)
[2023-05-09] MEDS: ENSURE WITH FIBER 237 ML LIQUID (CHOCOLATE) PO SCH ×2 (08:26→17:05)
[2023-05-09] MEDS: VALSARTAN 160 MG TABLET PO SCH (08:26)
[2023-05-09 12:00] VITALS: TEMP 97.6
[2023-05-09 15:57] VITALS: TEMP 97
[2023-05-09 17:59] VITALS: BP 125/61; TEMP 97.8; O2SAT 99
[2023-05-09 20:00] VITALS: BP 118/59; TEMP 97.9; O2SAT 98
[2023-05-10 04:00] VITALS: BP 115/56; TEMP 98.4; O2SAT 98
[2023-05-10] MEDS: MEGESTROL ACETATE 20 MG TABLET PO SCH ×2 (08:39→17:22)
[2023-05-10] MEDS: ASPIRIN 81 MG TAB.CHEW PO SCH (08:39)
[2023-05-10] MEDS: MODAFINIL 100 MG TABLET PO SCH (08:40)
[2023-05-10 08:43] VITALS: BP 106/53; TEMP 97.6; O2SAT 98
[2023-05-10] MEDS: AMLODIPINE 5 MG TABLET PO SCH (08:51)
[2023-05-10] MEDS: METOPROLOL TARTRATE 50 MG TABLET PO SCH (08:51)
[2023-05-10] MEDS: ENSURE WITH FIBER 237 ML LIQUID (CHOCOLATE) PO SCH ×2 (08:53→17:35)
[2023-05-10] MEDS: REMEDY ESSENTIAL ZINC PASTE 113 GM TOP SCH (08:53)
[2023-05-10] MEDS: VALSARTAN 160 MG TABLET PO SCH (09:00)
[2023-05-10] MEDS: CLOTRIMAZOLE 1% CREAM 30 GM TUBE TOP SCH ×2 (10:34→17:55)
[2023-05-10 15:32] VITALS: BP 102/56; TEMP 97.5; O2SAT 99
== END 2023-05-10 17:45 | disposition home health service (06) | DRG 689 ==
PROVIDERS: ADMIT Physical Medicine & Rehabilitation Pain Medicine; ATTEND Physical Medicine & Rehabilitation Pain Medicine
PROC: 0HBRXZZ Excision of Toe Nail, External Approach (ICD-10-PCS; principal; 2023-05-07)
DX: N30.81 Other cystitis with hematuria (principal); E43 Unspecified severe protein-calorie malnutrition; G93.41 Metabolic encephalopathy; E87.1 Hypo-osmolality and hyponatremia; F03.94 Unspecified dementia, unspecified severity, with anxiety; I50.32 Chronic diastolic (congestive) heart failure; N17.9 Acute kidney failure, unspecified; R64 Cachexia; B96.89 Other specified bacterial agents as the cause of diseases classified elsewhere; E03.8 Other specified hypothyroidism; E86.9 Volume depletion, unspecified; I11.0 Hypertensive heart disease with heart failure; I25.2 Old myocardial infarction; N20.0 Calculus of kidney; R62.7 Adult failure to thrive; L60.3 Nail dystrophy; L89.621 Pressure ulcer of left heel, stage 1; L89.891 Pressure ulcer of other site, stage 1; Z87.11 Personal history of peptic ulcer disease; Z88.0 Allergy status to penicillin
CPT/HCPCS: 36415; 83735; 84100; 85025; 97535-GO-CO; A4663; A6213